=== PATIENT | female | born 2000 | race American Indian/Alaskan Native ===

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

== ENCOUNTER 2022-06-24 12:13 | Emergency (ER) | payer MEDICAID ==
[2022-06-24 12:48] VITALS: BP 141/65
--- NOTE | 2022-06-24 16:04 | Emergency Department Report ---
ED General Adult HPI - General Chief complaint: Pain General Stated complaint: LT SIDE BREAST AND RIB PAIN Source: patient Mode of arrival: Ambulatory Limitations: No Limitations - History of Present Illness Initial comments: This is a 21-year-old -Italian female who presents to the emergency room with left shoulder and back pain for 2 to 3 days. Patient reports pain is dull and achy in intensity. Patient states last night she felt sharp pains while she was trying to. Patient states her mother gave her ibuprofen and heating pad which relieves some of the pain. Patient states she will do a lot of heavy lifting at work and thinks she possibly injured her shoulder and back. Patient denies numbness, tingling, chest pain, palpitations, change in urinary or bowel pattern, bruising, or weakness. - Related Data Previous Rx's Medication Instructions Recorded Last Taken Type Ondansetron [Zofran Odt] 4 mg PO Q8HR #12 tab.rapdis 11/19/19 Unknown Rx Ibuprofen [Motrin 800 MG tab] 800 mg PO Q8HR PRN #20 tablet 06/24/22 Unknown Rx Allergies Allergy/AdvReac Type Severity Reaction Status Date / Time No Known Allergies Allergy Verified 06/24/22 12:48 ED Review of Systems ROS: Stated complaint: LT SIDE BREAST AND RIB PAIN Other details as noted in HPI Constitutional: denies: chills, fever Respiratory: denies: cough, shortness of breath, wheezing Cardiovascular: denies: chest pain, palpitations Musculoskeletal: back pain, arthralgia Skin: denies: rash, lesions Neurological: denies: headache, weakness, paresthesias Psychiatric: denies: anxiety, depression ED Past Medical Hx - Past Medical History Previous Medical History?: No - Surgical History Past Surgical History?: No - Social History Smoking Status: Current Every Day Smoker Substance Use Type: Alcohol - Medications Home Medications: Home Medications Medication Instructions Recorded Confirmed Last Taken Type Ondansetron [Zofran Odt] 4 mg PO Q8HR #12 tab.rapdis 11/19/19 Unknown Rx Ibuprofen [Motrin 800 MG tab] 800 mg PO Q8HR PRN #20 tablet 06/24/22 Unknown Rx ED Physical Exam - General Limitations: No Limitations General appearance: alert, in no apparent distress - Respiratory Respiratory exam: Present: normal lung sounds bilaterally. Absent: respiratory distress - Cardiovascular Cardiovascular Exam: Present: regular rate, normal rhythm. Absent: systolic murmur, diastolic murmur, rubs, gallop - Expanded Upper Extremity Exam Left Shoulder Exam: Present: full ROM (Pain with movement). Absent: swelling, crepidus, tenderness over AC joint Upper Arm exam: Present: normal inspection, full ROM Elbow exam: Present: normal inspection, full ROM Neurosensory exam: Present: radial nerve intact, ulnar nerve intact, median nerve intact. Absent: 2-point discrimination Vascular: Present: normal capillary refill, radial pulse (+2). Absent: vascular compromise - Back Exam Back exam: Present: normal inspection, full ROM. Absent: paraspinal tenderness, vertebral tenderness, rash noted - Neurological Exam Neurological exam: Present: alert, oriented X3, normal gait - Psychiatric Psychiatric exam: Present: normal affect, normal mood - Skin Skin exam: Present: warm, dry, intact, normal color. Absent: rash ED Course Vital Signs 06/24/22 12:46 Temperature 98.9 F Pulse Rate 63 Respiratory 18 Rate Blood Pressure 141/65 [Left] O2 Sat by Pulse 99 Oximetry ED Medical Decision Making - Medical Decision Making 21-year-old -Italian female presents to the the emergency room with left shoulder pain for 2-3 days. Symptoms are susceptible for muscle strain. Patient is able to flex and extend although somewhat limited by pain. Considered, but doubt, septic arthritis, other acute unstable fracture, or significant neurovascular compromise. Nontender on exam for acute trauma. Imaging deferred. RICE therapy instructions given. OTC Acetaminophen up to four times a day for pain. Start ibuprofen by mouth three times a day for 5-14 days. Start early range of motion as soon as possible. Patient educated on strengthening for shoulder with handout given. Patient discharged home stable. Critical care attestation.: If time is entered above; I have spent that time in minutes in the direct care of this critically ill patient, excluding procedure time. ED Disposition Clinical Impression: Strain of other muscles, fascia and tendons at shoulder and upper arm level, left arm, initial encounter Left shoulder pain Qualifiers: Chronicity: acute Qualified Code(s): M25.512 - Pain in left shoulder Disposition: HOME / SELF CARE / HOMELESS Is pt being admited?: No Condition: Stable Instructions: Muscle Strain, [id number], Elastic Bandage and RICE Therapy Prescriptions: Ibuprofen [Motrin 800 MG tab] 800 mg PO Q8HR PRN #20 tablet PRN Reason: Pain Referrals: DALIA HERNANDEZ MD [Staff Physician] - 3-5 Days [facility] [Provider Group] - 3-5 Days Forms: Work/School Release Form(ED), Accompanied Note Time of Disposition: 16:06
== END 2022-06-24 17:30 | disposition home or self-care (01) ==
LOC: ED 12:13
DX: S46.912A Strain of unspecified muscle, fascia and tendon at shoulder and upper arm level, left arm, initial encounter (principal); M25.512 Pain in left shoulder; X50.0XXA Overexertion from strenuous movement or load, initial encounter; X50.9XXA Other and unspecified overexertion or strenuous movements or postures, initial encounter; Y93.89 Activity, other specified; Y92.89 Other specified places as the place of occurrence of the external cause; Y99.8 Other external cause status
CPT/HCPCS: 99282